=== PATIENT | female | born 1945 | race Caucasian/White ===

== ENCOUNTER 2018-05-10 18:38 | Emergency (ER) | payer MEDICARE, BC ==
[2018-05-10] MEDS ORDERED: ASPIRIN 81 MG CHEWABLE TABLET PO ONE (19:39)
[2018-05-10] MEDS ORDERED: ONDANSETRON HCL IV 4 MG/2 ML VIAL IVP ONE (19:39)
[2018-05-10] MEDS ORDERED: 0.9 % SODIUM CHLORIDE 1000ML 1,000 ML IV SCH (19:45)
--- NOTE | 2018-05-10 19:45 | Emergency Department Record ---
History of Present Illness - General Chief complaint: Nausea, Vomiting, Diarrhea Stated complaint: COLD SWEAT, VOMITING Time Seen by Provider: 05/10/18 19:38 Source: Patient Mode of Arrival: Ambulatory Limitations: No limitations - History of Present Illness Initial comments: 72 yo female presents to ED for evaluation of nausea, vomiting, and left upper extremity pain symptoms c/w previous episodes of angina. Patient reports eating italian food earlier today, and on the way home, began feeling left upper arm pressure similar to previous episodes of angina. Patient reports however that she broke out into a sweat and became sick to her stomach. Patient has a history of quad-bypass previous and subsequent 6 stents placed, sees Dr. Davidson in [place]. Patient's last cardiolyte was in 2015. MD complaint: Nausea, Vomiting Onset/Timin -: Hour(s) Description of Vomiting: Food contents Associated Abdominal Pain: Yes (gas pain) Location: Epigastric Severity: Moderate Quality: Cramping Consistency: Constant Improves with: None Worsens with: None Associated Symptoms: Diaphoresis, Nausea/vomiting - Related Data Home Medications Medication Instructions Recorded Confirmed Last Taken Amlodipine Besylate [Norvasc] 2.5 mg PO QHS 05/10/18 05/10/18 05/09/18 Aspirin [Aspir-Low] 81 mg PO DAILY 05/10/18 05/10/18 05/10/18 Ezetimibe 1 tab PO QHS 05/10/18 05/10/18 05/09/18 Famotidine [Acid Pedigree Tracer] 10 mg PO DAILY 05/10/18 05/10/18 05/10/18 Levothyroxine Sodium [Synthroid] 100 mcg PO DAILY 05/10/18 05/10/18 05/10/18 Lisinopril [Zestril] 5 mg PO DAILY 05/10/18 05/10/18 05/10/18 Magnesium Oxide [Magnesium] 500 mg PO QHS 05/10/18 05/10/18 05/09/18 Nitroglycerin [Nitrostat] 0.4 mg SL ASDIR PRN 05/10/18 05/10/18 05/10/18 Henderson-3 Fatty Acids/Fish Oil [Fish 1 each PO DAILY 05/10/18 05/10/18 05/10/18 Oil 1,000 mg Capsule] Simvastatin 1 tab PO QHS 05/10/18 05/10/18 05/09/18 Triamcinolone Acetonide 1 apply TOP Q 05/10/18 05/10/18 05/09/18 Allergies Allergy/AdvReac Type Severity Reaction Status Date / Time Penicillins Allergy Mild SKIN Verified 04/14/16 13:27 IRRITATION iodine AdvReac Mild high BP Verified 04/14/16 13:27 Travel Screening - Travel/Exposure Within Last 30 Days Have you traveled within the last 30 days?: No - Travel/Exposure Within Last Year Have you traveled outside the [place] in the last year?: No - Additonal Travel Details Have you been exposed to anyone with a communicable illness?: No - Travel Symptoms Symptom Screening: Diarrhea, Vomiting Review of Systems Constitutional: Denies: Chills, Fever, Malaise, Night sweats Eyes: Denies: Eye discharge, Eye pain ENT: Denies: Congestion, Ear pain, Epistaxis Respiratory: Denies: Cough, Dyspnea Cardiovascular: Denies: Chest pain, Dyspnea on exertion Endocrine: Denies: Fatigue, Heat or cold intolerance Gastrointestinal: Reports: Nausea, Vomiting Genitourinary: Denies: Incontinence, Retention Musculoskeletal: Denies: Arthralgia, Back pain, Gout, Joint swelling Skin: Denies: Bruising, Change in color Neurological: Denies: Abnormal gait, Confusion, Headache, Tingling, Tremors Psychiatric: Denies: Anxiety Hematological/Lymphatic: Denies: Anemia, Blood Clots Past Medical History - SOCIAL HISTORY Smoking Status: Never smoker Alcohol Use: None Drug Use: None - RESPIRATORY Hx Respiratory Disorders: Yes Hx Sleep Apnea: Yes Comment:: Sarcoidosis - CARDIOVASCULAR Hx Cardio Disorders: Yes Hx Cardiac Cath: Yes Hx Chest Pain: No (not since 2006) Hx Coronary Artery Bypass Graft: Yes (x4-2002) Hx Coronary Stent: Yes (x-2005) Comment:: pt states all recent stress tests WNL - NEURO Hx Neuro Disorders: No - GI Hx GI Disorders: Yes Hx Abdominal Pain: Yes (Lower abdomen) Hx Diverticulitis: Yes Hx Reflux: Yes - Hx Genitourinary Disorders: No - ENDOCRINE Hx Endocrine Disorders: Yes Hx Thyroid Disease: Yes - MUSCULOSKELETAL Hx Musculoskeletal Disorders: Yes Hx Arthritis: Yes Hx Fibromyalgia: Yes - PSYCH Hx Psych Problems: No - HEMATOLOGY/ONCOLOGY Hx Hematology/Oncology Disorders: No Family Medical History Any Significant Family History?: No Hx Diabetes: Mother, Brother/Sister Hx Heart Disease: Brother/Sister *Heart Comment: CABG Physical Exam - General General Appearance: Alert, Oriented x3, Cooperative, Mild distress Limitations: No limitations - Head Head exam: Atraumatic, Normocephalic, Normal inspection Head exam detail: negative: Abrasion, Contusion, José's sign, General tenderness, Hematoma, Laceration - Eye Eye exam: Normal appearance. negative: Conjunctival injection, Periorbital swelling, Periorbital tenderness, Scleral icterus - ENT Ear exam: negative: Auricular hematoma, Auricular trauma Nasal Exam: negative: Active bleeding, Discharge, Dried blood, Foreign body Mouth exam: negative: Drooling, Laceration, Muffled voice, Tongue elevation - Neck Neck exam: Normal inspection. negative: Meningismus, Tenderness - Respiratory Respiratory exam: Normal lung sounds bilaterally. negative: Respiratory distress, Rhonchi, Stridor, Wheezes - Cardiovascular Cardiovascular Exam: Regular rate, Normal rhythm, Normal heart sounds - GI/Abdominal GI/Abdominal exam: Soft. negative: Rebound, Rigid, Tenderness - Rectal Rectal exam: Deferred - exam: Deferred - Extremities Extremities exam: Normal inspection. negative: Calf tenderness, Pedal edema, Tenderness - Back Back exam: Denies: CVA tenderness (R), CVA tenderness (L) - Neurological Neurological exam: Alert, Normal gait, Oriented X3 - Psychiatric Psychiatric exam: Normal affect, Normal mood - Skin Skin exam: Normal color. negative: Abrasion Type of lesion: negative: abrasion Course Vital Signs 05/10/18 18:41 Temperature 97.7 F Pulse Rate 99 H Respiratory 18 Rate Blood Pressure 124/81 Pulse Ox 98 - Reevaluation(s) Reevaluation #1: 05/10/18 19:44 EKG: NSR 85 Normal axis, normal intervals Q waves V1-V2, III, no acute ST-T wave changes. Reevaluation #2: 05/10/18 20:34 labs reviewed: WBC 12.9 AST 52/ALT 68 Troponin appears normal. Patient was updated on all results, reports that her nausea symptoms are improved, no further left upper extremity pain symptoms. Will consult with the patient's platform builder for further recommendations. Reevaluation #3: 05/10/18 20:49 Case was discussed with Dr. Stack, will accept transfer for further cardiac evaluation. Medical Decision Making - Lab Data Result diagrams: 05/10/18 19:35 05/10/18 19:35 Disposition Disposition: Transfer Clinical Impression: Angina at rest Nausea & vomiting Qualifiers: Vomiting type: unspecified Vomiting Intractability: non-intractable Qualified Code(s): R11.2 - Nausea with vomiting, unspecified Disposition: Acute Care Hospital Transfer Transfer To: [facility] Reason For Transfer: Cardiac evaluation Accepting Physician: Bylor Time Discussed w/Accepting Physician: 20:50 Condition: (2) Stable Forms: Patient Portal Access Time of Disposition: 20:50 Quality - Quality Measures Quality Measures: N/A - Blood Pressure Screening Does Patient Have Any of the Following: No Blood Pressure Classification: Pre-Hypertensive BP Reading Systolic Measurement: 124 Diastolic Measurement: 81 Screening for High Blood Pressure: < Pre-Hypertensive BP, F/U Documented > [ [id number]] Pre-Hypertensive Follow-up Interventions: Referral to alternative/primary care provider.
[2018-05-10 19:51] LABS: HEMATOCRIT 43.7 % (35.0-47.0); HEMOGLOBIN 14.9 gm/dl (11.6-16.0); MEAN CELL VOLUME 90.9 fl (81-97); MEAN CORPUSCULAR HGB CONC 34.1 g/dl (32-36); MEAN PLATELET VOLUME 11.5 fl (7.4-10.4); PLATELET COUNT 270 K/uL (130-400); RED BLOOD COUNT 4.81 M/uL (3.80-5.40); RED CELL DISTRIBUTION WIDTH 12.1 % (11.5-14.5); WHITE BLOOD COUNT W/O DIFF 12.9 K/uL (4.2-12.2)
[2018-05-10 19:59] LABS: BLOOD UREA NITROGEN 17 mg/dL (8-23); CREATININE 0.7 mg/dL (0.5-0.9); EST GLOMERULAR FILTRATION RATE > 60 mL/min
[2018-05-10 20:00] LABS: TOTAL PROTEIN 7.3 g/dL (6.6-8.7)
[2018-05-10 20:02] LABS: GLUCOSE,RANDOM 114 mg/dL (74-109)
[2018-05-10 20:05] LABS: ALB/GLOB RATIO 1.7 (1.1-1.8); ALBUMIN 4.6 g/dL (4.0-5.0); ALKALINE PHOSPHATASE 74 U/L (35-104); ALT/SGPT 68 U/L (<33); AST/SGOT 52 U/L (10.0-35.0); LIPASE 45 U/L (13-60)
[2018-05-10 20:07] LABS: PLATELET ESTIMATE NORMAL (NORMAL)
[2018-05-10] MEDS ORDERED: PANTOPRAZOLE SODIUM 40 MG TABLET PO ONE (21:34)
[2018-05-11] MEDS ORDERED: AMLODIPINE BESYLATE 5MG TAB PO SCH (10:00)
[2018-05-11] MEDS ORDERED: AMLODIPINE BESYLATE 5MG TAB PO ONE (21:41)
== END 2018-05-10 22:41 | disposition short-term general hospital (02) ==
LOC: ER 18:38
DX: I20.0 Unstable angina (principal); R11.2 Nausea with vomiting, unspecified; R61 Generalized hyperhidrosis; R19.7 Diarrhea, unspecified; R10.13 Epigastric pain; Z95.1 Presence of aortocoronary bypass graft
CPT/HCPCS: 99285 ×2; 96374; 96361; 83690; 80053; 84484; 85027; 93005; 93010; J2405; J7030